=== PATIENT | female | born 1980 | race Caucasian/White ===

== ENCOUNTER → 2016-05-24 14:46 | Outpatient (CLI) | payer MEDICAID | END | disposition home or self-care (01) | LOC: D.MRI 14:46 | DX: M54.5 Low back pain (principal) ==

== ENCOUNTER 2016-07-15 21:10 | Emergency (ER) | payer MEDICAID | END 2016-07-15 21:20 | disposition left against medical advice (07) | LOC: D.ER 21:10 | DX: Z02.9 Encounter for administrative examinations, unspecified (principal) ==

== ENCOUNTER 2017-06-08 11:35 | Emergency (ER) | payer MEDICAID ==
[2017-06-08 12:55] LABS: BASOPHILS 0.1 % (0-2); EOSINOPHILS 0.1 % (0-7); HEMATOCRIT 39.9 % (36.0-48.0); HEMOGLOBIN 13.8 g/dL (12-16); IMMATURE GRANULOCYTES 0.2 % (0-5); LYMPHOCYTES 14.2 % (15-50); MCH 30.2 pg (26.0-34.0); MCHC 34.6 g/dL (31.0-37.0); MCV 87.3 fL (80.0-100.0); MEAN PLATELET VOLUME 10.8 fL (7.4-10.4); MONOCYTES 8.9 % (2-11); NEUTROPHILS 76.5 % (40-80); PLATELET COUNT 267 10x3/uL (130-400); RBC 4.57 10x6/uL (4.00-5.40); RDW 13.7 % (11.5-14.5); WBC 12.2 10x3/uL (4.8-10.8)
[2017-06-08 13:13] LABS: ALBUMIN 4.8 g/dL (3.4-5.0); ALKALINE PHOSPHATASE 57 U/L (46-116); ALT (SGPT) 18 U/L (10-68); AMYLASE - SERUM 70 U/L (25-115); CALC OSMOLALITY 280 mosm/kg (275-300); CALCIUM 9.5 mg/dL (8.5-10.1); CARBON DIOXIDE 24.7 mmol/L (21.0-32.0); CHLORIDE - SERUM 100 mmol/L (98-107); CREATININE - SERUM 0.8 mg/dL (0.6-1.3); GLUCOSE 129 mg/dL (74-106); LIPASE 208 U/L (73-393); POTASSIUM - SERUM 3.6 mmol/L (3.5-5.1); PROTEIN - SERUM 8.9 g/dL (6.4-8.2); SODIUM 138 mmol/L (136-145); UREA NITROGEN 20 mg/dL (7-18); eGFR NON AFRICAN AMERICAN 86 mL/min (90-120)
[2017-06-08 16:08] LABS: APPEARANCE CLEAR (CLEAR); BILIRUBIN NEGATIVE (NEGATIVE); COLOR DK YELLOW (YELLOW); GLUCOSE NEGATIVE (NEGATIVE); KETONE NEGATIVE (NEGATIVE); NITRITE NEGATIVE (NEGATIVE); PROTEIN TRACE mg/dL (NEGATIVE); SPECIFIC GRAVITY 1.015 (1.005-1.020); UROBILINOGEN NORMAL (NORMAL)
[2017-06-08 16:12] LABS: BACTERIA FEW /hpf (NONE SEEN)
== END 2017-06-08 17:45 | disposition home or self-care (01) ==
LOC: D.ER 11:35
PROVIDERS: Emergency Medicine
DX: N39.0 Urinary tract infection, site not specified (principal); A59.9 Trichomoniasis, unspecified; R11.2 Nausea with vomiting, unspecified

== ENCOUNTER 2017-06-09 14:04 | Emergency (ER) | payer MEDICAID ==
[2017-06-09 16:29] LABS: BASOPHILS 0.1 % (0-2); EOSINOPHILS 0.1 % (0-7); HEMATOCRIT 36.7 % (36.0-48.0); HEMOGLOBIN 12.4 g/dL (12-16); IMMATURE GRANULOCYTES 0.2 % (0-5); LYMPHOCYTES 24.8 % (15-50); MCH 29.6 pg (26.0-34.0); MCHC 33.8 g/dL (31.0-37.0); MCV 87.6 fL (80.0-100.0); MEAN PLATELET VOLUME 10.8 fL (7.4-10.4); MONOCYTES 9.3 % (2-11); NEUTROPHILS 65.5 % (40-80); PLATELET COUNT 229 10x3/uL (130-400); RBC 4.19 10x6/uL (4.00-5.40); RDW 13.4 % (11.5-14.5)
[2017-06-09 16:34] LABS: WBC 8.1 10x3/uL (4.8-10.8)
== END 2017-06-09 18:05 | disposition home or self-care (01) ==
LOC: D.ER 14:04
PROVIDERS: Nurse Practitioner Family
DX: R10.9 Unspecified abdominal pain (principal); R11.2 Nausea with vomiting, unspecified

== ENCOUNTER 2017-06-11 17:03 | Observation (INO) | payer OTHER ==
[2017-06-11 18:36] LABS: BASOPHILS 0.1 % (0-2); EOSINOPHILS 0.9 % (0-7); HEMATOCRIT 39.9 % (36.0-48.0); HEMOGLOBIN 13.4 g/dL (12-16); IMMATURE GRANULOCYTES 0.5 % (0-5); LYMPHOCYTES 12.3 % (15-50); MCH 29.8 pg (26.0-34.0); MCHC 33.6 g/dL (31.0-37.0); MCV 88.7 fL (80.0-100.0); MEAN PLATELET VOLUME 11.3 fL (7.4-10.4); MONOCYTES 5.7 % (2-11); NEUTROPHILS 80.5 % (40-80); PLATELET COUNT 240 10x3/uL (130-400); RDW 13.2 % (11.5-14.5); WBC 10.4 10x3/uL (4.8-10.8)
[2017-06-11 18:59] LABS: ALBUMIN 4.3 g/dL (3.4-5.0); ALKALINE PHOSPHATASE 50 U/L (46-116); ALT (SGPT) 23 U/L (10-68); AMYLASE - SERUM 68 U/L (25-115); BILIRUBIN - TOTAL 0.72 mg/dL (0.2-1.3); CALC OSMOLALITY 281 mosm/kg (275-300); CALCIUM 9.1 mg/dL (8.5-10.1); CARBON DIOXIDE 26.6 mmol/L (21.0-32.0); CHLORIDE - SERUM 104 mmol/L (98-107); CREATININE - SERUM 0.8 mg/dL (0.6-1.3); GLUCOSE 120 mg/dL (74-106); LIPASE 185 U/L (73-393); POTASSIUM - SERUM 4.1 mmol/L (3.5-5.1); PROTEIN - SERUM 7.6 g/dL (6.4-8.2); SODIUM 140 mmol/L (136-145); UREA NITROGEN 17 mg/dL (7-18); eGFR NON AFRICAN AMERICAN 86 mL/min (90-120)
[2017-06-11 22:58] LABS: APPEARANCE CLEAR (CLEAR); BILIRUBIN NEGATIVE (NEGATIVE); COLOR YELLOW (YELLOW); GLUCOSE NEGATIVE (NEGATIVE); KETONE SMALL mg/dL (NEGATIVE); NITRITE NEGATIVE (NEGATIVE); PROTEIN NEGATIVE (NEGATIVE); SPECIFIC GRAVITY 1.015 (1.005-1.020); UROBILINOGEN NORMAL (NORMAL)
[2017-06-12 06:44] LABS: BASOPHILS 0.1 % (0-2); EOSINOPHILS 0.7 % (0-7); HEMATOCRIT 34.3 % (36.0-48.0); HEMOGLOBIN 11.4 g/dL (12-16); IMMATURE GRANULOCYTES 0.2 % (0-5); LYMPHOCYTES 19.1 % (15-50); MCH 29.3 pg (26.0-34.0); MCHC 33.2 g/dL (31.0-37.0); MCV 88.2 fL (80.0-100.0); MONOCYTES 8.7 % (2-11); NEUTROPHILS 71.2 % (40-80); PLATELET COUNT 214 10x3/uL (130-400); RBC 3.89 10x6/uL (4.00-5.40); RDW 13.2 % (11.5-14.5); WBC 8.8 10x3/uL (4.8-10.8)
[2017-06-12 06:56] LABS: CALC OSMOLALITY 272 mosm/kg (275-300); CALCIUM 7.8 mg/dL (8.5-10.1); CARBON DIOXIDE 22.4 mmol/L (21.0-32.0); CHLORIDE - SERUM 105 mmol/L (98-107); CREATININE - SERUM 0.6 mg/dL (0.6-1.3); GLUCOSE 94 mg/dL (74-106); MAGNESIUM - SERUM 1.8 mg/dL (1.8-2.4); SODIUM 137 mmol/L (136-145); UREA NITROGEN 11 mg/dL (7-18); eGFR NON AFRICAN AMERICAN > 90 mL/min (90-120)
[2017-06-12 06:57] LABS: POTASSIUM - SERUM 3.4 mmol/L (3.5-5.1)
== END 2017-06-12 12:36 | disposition home or self-care (01) ==
LOC: D.ER 17:03 → OBSVTIME 23:54 → D.SDCHOLD 23:54
PROVIDERS: Family Medicine
DX: A08.4 Viral intestinal infection, unspecified (principal)

== ENCOUNTER 2018-01-09 22:56 | Emergency (ER) | payer OTHER ==
[~2018-01-09] VITALS: Ht 167.6 cm; Wt 69.1 kg
[2018-01-09 23:01] VITALS: Ht 167.6 cm; Wt 69.1 kg
[2018-01-09 23:32] LABS: APPEARANCE CLEAR (CLEAR); BILIRUBIN NEGATIVE (NEGATIVE); COLOR YELLOW (YELLOW); GLUCOSE NEGATIVE (NEGATIVE); KETONE NEGATIVE (NEGATIVE); NITRITE NEGATIVE (NEGATIVE); PROTEIN NEGATIVE (NEGATIVE); SPECIFIC GRAVITY 1.005 (1.005-1.020); UROBILINOGEN NORMAL (NORMAL)
[2018-01-09] MEDS ORDERED: ZOFRAN ODT4 MG/UDTAB PO (23:56)
[2018-01-10 00:38] VITALS: BP 126/88
== END 2018-01-10 00:38 | disposition home or self-care (01) ==
LOC: D.ER 22:56
PROVIDERS: Emergency Medicine
DX: R10.32 Left lower quadrant pain (principal)

== ENCOUNTER 2018-04-06 18:35 | Emergency (ER) | payer OTHER ==
[2018-04-06 19:24] LABS: BASOPHILS 0.3 % (0-2); EOSINOPHILS 1.7 % (0-7); HEMATOCRIT 33.5 % (36.0-48.0); HEMOGLOBIN 11.1 g/dL (12-16); IMMATURE GRANULOCYTES 0.5 % (0-5); LYMPHOCYTES 43.7 % (15-50); MCH 29.5 pg (26.0-34.0); MCHC 33.1 g/dL (31.0-37.0); MCV 89.1 fL (80.0-100.0); MEAN PLATELET VOLUME 10.4 fL (7.4-10.4); MONOCYTES 7.8 % (2-11); PLATELET COUNT 233 10x3/uL (130-400); RBC 3.76 10x6/uL (4.00-5.40); RDW 13.6 % (11.5-14.5); WBC 7.4 10x3/uL (4.8-10.8)
[2018-04-06 19:27] LABS: APPEARANCE CLEAR (CLEAR); BILIRUBIN NEGATIVE (NEGATIVE); COLOR STRAW (YELLOW); GLUCOSE NEGATIVE (NEGATIVE); KETONE NEGATIVE (NEGATIVE); NITRITE NEGATIVE (NEGATIVE); PROTEIN NEGATIVE (NEGATIVE); UROBILINOGEN NORMAL (NORMAL)
[2018-04-06 19:29] LABS: BACTERIA FEW /hpf (NONE SEEN); HCG URINE NEGATIVE (NEGATIVE); RED CELLS - URINE 0-5 /hpf (0-5); WHITE CELLS - URINE 0-5 /hpf (0-5)
[2018-04-06 19:33] LABS: ALBUMIN 3.7 g/dL (3.4-5.0); ALKALINE PHOSPHATASE 58 U/L (46-116); ALT (SGPT) 13 U/L (10-68); CALC OSMOLALITY 269 mosm/kg (275-300); CALCIUM 8.1 mg/dL (8.5-10.1); CARBON DIOXIDE 22.9 mmol/L (21.0-32.0); CHLORIDE - SERUM 101 mmol/L (98-107); CREATININE - SERUM 0.6 mg/dL (0.6-1.3); GLUCOSE 109 mg/dL (74-106); POTASSIUM - SERUM 3.4 mmol/L (3.5-5.1); PROTEIN - SERUM 7.3 g/dL (6.4-8.2); SODIUM 134 mmol/L (136-145); UREA NITROGEN 16 mg/dL (7-18); eGFR NON AFRICAN AMERICAN > 90 mL/min (90-120)
[2018-04-06 19:38] LABS: TROPONIN-I < 0.017 ng/mL (0.000-0.060)
== END 2018-04-06 20:36 | disposition home or self-care (01) ==
LOC: D.ER 18:35
PROVIDERS: Emergency Medicine
DX: R25.1 Tremor, unspecified (principal); F41.9 Anxiety disorder, unspecified; E83.51 Hypocalcemia

== ENCOUNTER 2019-10-03 04:29 | Observation (INO) | payer OTHER ==
[~2019-10-03] VITALS: Ht 167.6 cm; Wt 61.4 kg
[~2019-10-03 04:29] MED LIST: ATIVAN1 MG PO; KEFLEX500 MG PO; ZOFRAN ODT4 MG/UDTAB PO
[2019-10-03] MEDS ORDERED: HYDROCODON-ACE1 EAC2 PO (04:34)
[2019-10-03 16:14] VITALS: Ht 167.6 cm; Wt 61.4 kg
[2019-10-05 08:42] VITALS: BP 135/71
[2019-10-05] MEDS ORDERED: [UNRECOGNIZED DRUG - OTHER] PO (10:17)
== END 2019-10-05 11:35 | disposition home or self-care (01) ==
LOC: D.ER 04:29 → D.M2 06:52 → OBSVTIME 06:52 → D.M2 10-05 11:35
PROVIDERS: ADMIT Family Medicine; ATTEND Family Medicine
DX: R11.2 Nausea with vomiting, unspecified (principal); E86.0 Dehydration; R10.9 Unspecified abdominal pain; G89.29 Other chronic pain